=== PATIENT | male | born 2000 | race Caucasian/White ===

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

== ENCOUNTER 2022-06-12 21:45 | Emergency (ER) | payer OTHER, SELFPAY ==
[2022-06-12 21:46] VITALS: BP 166/76; PULSE 92; RESP 16; TEMP 37.1; O2SAT 99; BMI 35.9
--- NOTE | 2022-06-12 22:03 | HMH.EDGENADL ---
Discharge Plan Disposition Patient Disposition: Home, Self-Care Condition: Good Prescriptions Prescriptions: New amoxicillin-pot clavulanate 875-125 mg tablet 1 tab PO Q12H Qty: 20 0RF ketorolac 10 mg tablet 10 mg PO Q8H 4 Days Qty: 12 0RF No Action naproxen 500 MG tablet,delayed release (DR/EC) 500 mg PO BID PRN (Reason: Mild Pain) Qty: 20 0RF Referrals Follow up/Referrals: Provider,Referral, [Primary Care Provider] - See instructions Clinical Impressions Clinical Impression: Dental abscess Instructions Patient Instructions: DI for Dental Pain Print Language Print Language: Bolivian Discharge ED Provider: Abel Scott General Adult HPI General Chief complaint: PAIN Stated complaint: Left side of face swollen, no accident Time Seen by Provider: 06/12/22 22:11 History of Present Illness HPI narrative: Patient presents to the emergency department left jaw swelling. The patient has known dental problems. He comes in today after he had worsening swelling since this morning. Denies any fever, chills, cough, congestion, nausea or vomiting. Does describe significant facial pain. Related Data Previous Rx's Medication Instructions Recorded naproxen 500 mg tablet,delayed 500 mg PO BID PRN Mild Pain ##20 03/03/17 release amoxicillin 875 mg-potassium 1 tab PO Q12H #20 tabs 06/12/22 clavulanate 125 mg tablet ketorolac 10 mg tablet 10 mg PO Q8H 4 days #12 tabs 06/12/22 Allergies Allergy/AdvReac Type Severity Reaction Status Date / Time No Known Allergies Allergy Verified 03/03/17 09:41 [facility] Disclaimer: The information contained in this section may have been updated after the patient was seen, as this information can be updated by other users. Social History Smoking Status: Never smoker alcohol intake: never current occupational status: other Travel in the last 8 weeks: None ROS Obtained: Yes All systems reviewed & no additional complaints except as documented ENT Ears, Nose, Mouth, and Throat: Reports other (Dental pain, facial swelling) Physical Exam General General appearance: alert and in no apparent distress Head Head exam: atraumatic and normocephalic Eye Eye exam: Present normal appearance, PERRL and EOMI ENT ENT exam: Present other (Significant gingival edema tooth #17 and 18. There is a fracture tooth #19.) Respiratory Respiratory exam: Present normal lung sounds bilaterally Cardiovascular Cardiovascular exam: Present regular rate and normal rhythm Abdominal Exam Abdominal exam: Present soft and other (Nontender, nondistended. No guarding. No rebound. Normal bowel sounds.) Extremities Exam Extremities exam: Present normal inspection and full ROM Neurological Exam Neurological exam: Present alert and oriented X3 Psychiatric Psychiatric exam: Present normal affect Medical Decision Making Medical Records Medical records reviewed: Yes I reviewed the patient's medical records. Herberth Inquiry Pt receiving controlled substance: No Herberth was queried for this patient: No Medical Decision Narrative: Patient was evaluated and found to have early developing dental abscess. I encouraged him to follow-up with [facility] dental clinic in the morning. He was provided with information. He was given Augmentin, [place] and Toradol. He will follow-up in the morning Critical Care Time Critical Care Time Critical Care Time: No Attestation: On 06/12/22, the high probability of a clinically significant, sudden or life threatening deterioration of the following system(s) required my full and direct attention, intervention and personal management. The time I documented below is in addition to time spent performing reported procedures but includes the following listed in this critical care notation.
[2022-06-12 22:24] VITALS: BP 150/74; PULSE 80; RESP 18; TEMP 37.1; O2SAT 98
== END 2022-06-12 22:36 | disposition home or self-care (01) ==
PROVIDERS: Emergency Provider Emergency Medicine
DX: R22.0 Localized swelling, mass and lump, head (principal)
CPT/HCPCS: 99283; 99284